=== PATIENT | male | born 1955 | race Hispanic/Latino ===

== ENCOUNTER 2017-04-30 09:16 | Emergency (ER) | payer SELFPAY | END 2017-04-30 11:54 | disposition home or self-care (01) | LOC: EDH 09:16 | DX: J06.9 Acute upper respiratory infection, unspecified (principal); J44.9 Chronic obstructive pulmonary disease, unspecified; Z72.0 Tobacco use | CPT/HCPCS: 71046; 87804; 93005 ==

== ENCOUNTER 2017-06-16 09:34 | Emergency (ER) | payer SELFPAY ==
[2017-06-16 10:06] LABS: BASOPHILS % (AUTO) 0.7 % (0.0-5.0); EOSINOPHILS % (AUTO) 1.8 % (0.0-8.0); HEMATOCRIT 42.5 % (42-54); LYMPHOCYTES % (AUTO) 30.7 % (21.0-51.0); MEAN CORPUSCULAR HEMOGLOBIN 30.1 pg (27.0-33.0); MEAN CORPUSCULAR HGB CONC 33.7 g/dL (32.0-36.0); MEAN CORPUSCULAR VOLUME 89.4 fL (79-99); MONOCYTES % (AUTO) 7.5 % (3.0-13.0); NEUTROPHILS % (AUTO) 59.3 % (40.0-77.0); PLATELET COUNT (AUTO) 272 K/uL (130-400); RED BLOOD CELL COUNT(AUTO) 4.76 MIL/uL (4.50-6.20); RED CELL DISTRIBUTION WIDTH 14.9 % (11.0-15.5); WHITE BLOOD COUNT (AUTO) 8.1 K/uL (4.8-10.8)
[2017-06-16] MEDS ORDERED: ASPIRIN 325 MG TABLET ONE (10:08)
[2017-06-16 10:13] LABS: CREATININE 0.9 mg/dL (0.5-1.5)
[2017-06-16 10:22] LABS: INR 0.98 (0.85-1.15); PROTHROMBIN TIME 10.3 SEC (9.6-11.6)
[2017-06-16 10:28] LABS: ALBUMIN 3.5 g/dL (3.5-5.0); BILIRUBIN,TOTAL 0.3 mg/dL (0.2-1.0); CREATINE KINASE MB 1.2 ng/mL (0.5-3.6); TOTAL PROTEIN, SERUM 7.8 g/dL (6.0-8.3)
[2017-06-16] MEDS ORDERED: HYDRALAZINE HCL 20 MG/ML VIAL ONE (10:46)
== END 2017-06-16 11:59 | disposition home or self-care (01) ==
LOC: EDH 09:34
DX: R07.89 Other chest pain (principal); M25.512 Pain in left shoulder; I10 Essential (primary) hypertension; R42 Dizziness and giddiness; R53.83 Other fatigue; J44.9 Chronic obstructive pulmonary disease, unspecified; Z72.0 Tobacco use
CPT/HCPCS: 36415; 71045; 73030; 80053; 82550; 82553; 85025; 85610; 85730; 93005; 96374; 99285; J0360